=== PATIENT | male | born 1935 | race Caucasian/White ===

== ENCOUNTER → 2018-02-06 | Outpatient (CLI) | payer MEDICARE, BC ==
[~2018-02-06] MED LIST: ACET325T14 PO; ASPI-496 PO; ATEN25TA PO; ATOR40TA78 PO; LEVO100T74 PO; NIAC500T PO; TRAM50TA2 PO
[2018-02-06 10:20] LABS: MICROSCOPIC AUTO
[2018-02-06 10:23] LABS: BASOPHILS # (AUTO) 0.02 x10^3/uL (0-0.1); BASOPHILS % (AUTO) 0 % (0-1); EOSINOPHILS # (AUTO) 0.17 x10^3/uL (0-0.4); EOSINOPHILS % (AUTO) 3 % (1-7); LYMPHOCYTES # (AUTO) 1.42 x10^3/uL (1-3.4); LYMPHOCYTES % (AUTO) 24 % (22-44); MD NO; MEAN CORPUSCULAR HEMOGLOBIN 32.8 pg (27.5-34.5); MEAN CORPUSCULAR VOLUME 96.6 fL (81-97); MEAN PLATELET VOLUME 8.9 fL (7.4-10.4); MONOCYTES # (AUTO) 0.45 x10^3/uL (0.2-0.8); MONOCYTES % (AUTO) 8 % (2-9); NEUTROPHILS # (AUTO) 3.87 x10^3/uL (1.8-6.8); NEUTROPHILS % (AUTO) 65 % (42-75); PLATELET COUNT 161 x10^3/uL (130-400); RED BLOOD COUNT 5.04 x10^6/uL (4.38-5.82); RED CELL DISTRIBUTION WIDTH 13.4 % (9.4-14.8)
[2018-02-06 10:28] LABS: ANION GAP 6 mmol/L (5-15); CHLORIDE 103 mmol/L (98-107); CREATININE 1.19 mg/dL (0.7-1.3)
[2018-02-06 10:35] LABS: CULTURE INDICATED? NO
== END | disposition home or self-care (01) ==
LOC: STAR 09:15
PROVIDERS: ATTEND Orthopaedic Surgery
DX: Z01.818 Encounter for other preprocedural examination (principal); S83.242D Other tear of medial meniscus, current injury, left knee, subsequent encounter; X58.XXXD Exposure to other specified factors, subsequent encounter
CPT/HCPCS: 36415; 80048; 81001; 85025; 93005

== ENCOUNTER 2018-02-14 05:46 | Day surgery (SDC) | payer MEDICARE, BC ==
[~2018-02-14] VITALS: Ht 167.6 cm; Wt 69.4 kg
[2018-02-14] MEDS ORDERED: LACTATED RINGERS 1,000 ML IV SCH (06:08)
[2018-02-14] MEDS ORDERED: BUPIVACAINE/PF 0.5% ONE (06:17)
[2018-02-14] MEDS ORDERED: AMLO10TA6 PO (06:19)
[2018-02-14] MEDS ORDERED: MIDAZOLAM 1 MG/ML, 2ML ONE (06:21)
[2018-02-14] MEDS ORDERED: CEFAZOLIN 1,000 MG ONE ×2 (06:22)
[2018-02-14] MEDS ORDERED: PROPOFOL 10 MG/ML, 20ML ONE (06:22)
[2018-02-14] MEDS ORDERED: FENTANYL PF 100 MCG/2ML ONE (06:22)
[2018-02-14] MEDS ORDERED: LIDOCAINE-MPF 2% ,5ML ONE (06:22)
[2018-02-14 06:29] VITALS: BP 196/102
[2018-02-14] MEDS ORDERED: METOCLOPRAMIDE 5 MG/ML, 2ML IV PRN (06:30)
[2018-02-14] MEDS ORDERED: ONDANSETRON 2MG/ML, 2ML IVPush PRN (06:30)
[2018-02-14] MEDS ORDERED: LORazepam 2 MG/ML, 1ML IVPush PRN (06:30)
[2018-02-14] MEDS ORDERED: MORPHINE SULFATE 4 MG/ML, 1ML IVPush PRN (06:30)
[2018-02-14] MEDS ORDERED: ALBUTEROL SULFATE 2.5 MG/3 ML NPPB PRN (06:30)
[2018-02-14] MEDS ORDERED: PROMETHAZINE 25 MG/ML, 1ML IM PRN (06:30)
[2018-02-14] MEDS ORDERED: HYDROmorphone 1 MG/ML, 1ML IM PRN (06:30)
[2018-02-14] MEDS ORDERED: hydrALAzine 20 MG/ML, 1ML IV PRN (06:30)
[2018-02-14] MEDS ORDERED: MEPERIDINE/PF 25MG/0.5ML IVPush PRN (06:30)
[2018-02-14] MEDS ORDERED: ACETAMINOPHEN 325 MG TABLET PO PRN (06:30)
[2018-02-14] MEDS ORDERED: HYDROcodone/APAP 5/325 TABLET PO PRN (06:30)
[2018-02-14] MEDS ORDERED: OXYcodone 5 MG/5 ML ORAL.SOL UDC PO PRN (06:30)
[2018-02-14] MEDS ORDERED: METOPROLOL 1 MG/ML, 5ML IV PRN (06:30)
[2018-02-14] MEDS ORDERED: FENTANYL PF 100 MCG/2ML IV PRN (06:30)
[2018-02-14] MEDS ORDERED: KETOROLAC 30 MG/1 ML IVPush SCH (06:30)
[2018-02-14] MEDS ORDERED: OXYcodone 5 MG/5 ML ORAL.SOL UDC ONE (07:20)
[2018-02-14] MEDS ORDERED: KETOROLAC 30 MG/1 ML ONE (07:34)
== END 2018-02-14 09:10 | disposition home or self-care (01) ==
LOC: OUT 05:46
PROVIDERS: ATTEND Orthopaedic Surgery
DX: S83.242A Other tear of medial meniscus, current injury, left knee, initial encounter (principal); X58.XXXA Exposure to other specified factors, initial encounter; Y93.9 Activity, unspecified; Y92.9 Unspecified place or not applicable; Y99.9 Unspecified external cause status; I10 Essential (primary) hypertension; E03.9 Hypothyroidism, unspecified; Z88.8 Allergy status to other drugs, medicaments and biological substances; Z79.899 Other long term (current) drug therapy; Z95.5 Presence of coronary angioplasty implant and graft
CPT/HCPCS: 29881; J0690; J1885; J2250; J2704; J3010; J3490; J7120